=== PATIENT | male | born 1965 | race Caucasian/White ===

== ENCOUNTER 2017-04-26 06:48 | Inpatient (IN) | payer BC ==
[~2017-04-26 06:48] MED LIST: Bisacodyl 5 MG Tab PO PRN; Cyclobenzaprine 10 MG Tab PO PRN; Ketorolac 15 MG/ML SDV IVPUSH PRN; Lidocaine 1%/Sod Bicarbonate in NS 8.4% 1 ML Syringe PRN; Magnesium Hydroxide 400 MG/5 ML Susp 30 ML Cup PO PRN; Morphine 2 MG/ML Syringe IVPUSH PRN; Naloxone 0.4 MG/ML SDV IVPUSH PRN; Ondansetron 4 MG/2 ML SDV IVPUSH PRN; Sennosides 8.6 MG Tab PO PRN; Sodium Chloride 0.9% 10 ML Syringe FLUSH PRN; diphenhydrAMINE 50 MG/ML SDV IVPUSH PRN
[2017-04-26] MEDS ORDERED: Vancomycin 1 GM SDV ONE (07:09)
[2017-04-26] MEDS ORDERED: ceFAZolin 1 GM Vial ONE ×2 (07:09→07:47)
[2017-04-26] MEDS ORDERED: Iodine/Sodium Iodide 2% Tincture 30 ML Bottle ONE (07:09)
[2017-04-26] MEDS ORDERED: Bupivacaine 0.25% 30 ML SDV ONE (07:09)
[2017-04-26] MEDS: Lactated Ringers 1,000 ML IV SCH ×2 (07:20→11:42)
--- NOTE | 2017-04-26 07:23 | PCM.PREANE ---
Preanesthetic Assessment - Anesthesia/Transfusion/Family Hx Anesthesia History: Prior Anesthesia Without Reaction Family History of Anesthesia Reaction: No - Review of Systems General: No Symptoms Pulmonary: No Symptoms Cardiovascular: No Symptoms, Other (HTN, HLD) Gastrointestinal: No Symptoms Neurological: Other (L2-D2woahcc surgery, chronic low back pain, C6-7 ruptured disc, right hand numbness) Other: Reports: None - Physical Assessment NPO Status Date: 04/25/17 NPO Status Time: 22:30 Pulse: 67 O2 Sat by Pulse Oximetry: 99 Respiratory Rate: 16 Blood Pressure: 134/75 Temperature: 37.0 C Height: 1.98 m Weight: 95 kg ASA Class: 2 Mental Status: Alert & Oriented x3 Airway Class: Mallampati = 2 Dentition: Reports: Normal Dentition Thyro-Mental Finger Breadths: 3 Mouth Opening Finger Breadths: 3 ROM/Head Extension: Full Lungs: Clear to Auscultation, Normal Respiratory Effort Cardiovascular: Regular Rate, Regular Rhythm - Lab Values: Laboratory Last Values MRSA (PCR) Negative 04/14/17 09:29 - Allergies Allergies/Adverse Reactions: Allergies Allergy/AdvReac Type Severity Reaction Status Date / Time cat dander Allergy Mild unknown Verified 04/23/17 12:18 Tramadol Allergy Intermediate Vomiting Uncoded 04/23/17 12:18 Environmental Allergy Mild unknown Uncoded 04/23/17 12:18 - Blood Blood Available: No Product(s) Available: None - Anesthesia Plan Pre-Op Medication Ordered: None - Acknowledgements Anesthesia Type Planned: Spinal Pt an Appropriate Candidate for the Planned Anesthesia: Yes Alternatives and Risks of Anesthesia Discussed w Pt/Guardian: Yes Pt/Guardian Understands and Agrees with Anesthesia Plan: Yes PreAnesthesia Questionnaire Other HEENT History: Seasonal Allergic Rhinitis Other Cardiovascular History: Dylipidemia, HTN Other Genitourinary History: Male Sexual Dysfunction, Hypogonadism Musculoskeletal History: Reports: Back Pain, Chronic, Osteoarthritis Other Musculoskeletal History: L2-S1 Buldging discs, Chronic Left Hip Pain, Right SI joint pain, Left knee pain Neurological History: Reports: Other (See Below) Other Neuro History: C6-C7 disc rupture, back spasms, discongenic syndrome right radicular component, foraminal disc herniation L2/L3, chronic numbness to right hand for fifteen years. Endocrine/Metabolic History: Reports: Other (See Below) Other Endocrine/Metabolic History: Chronic Fatigue - Past Surgical History Other HEENT Surgeries/Procedures: Patient states he has had a few dental procedures in the past. Musculoskeletal Surgical History: Reports: Other (See Below) Other Musculoskeletal Surgeries/Procedures:: Patient states he had lumbar disc surgery on October 2016. - SUBSTANCE USE Smoking Status *Q: Never Smoker Days Per Week of Alcohol Use: 7 Number of Drinks Per Day: 2 Total Drinks Per Week: 14 Recreational Drug Use History: No - HOME MEDS Home Medications: Home Meds Ibuprofen 800 mg PO TID PRN 04/23/17 [History] Lisinopril 5 mg PO DAILY 04/23/17 [History] Testosterone Cypionate [Depo-Testosterone] 200 mg IM ASDIRECTED 04/23/17 [ History] oxyCODONE HCl [Oxycodone HCl] 1 - 2 cap PO Q4H PRN 04/23/17 [History] - CURRENT (IN HOUSE) MEDS Current Meds: Current Medications Aspirin (Ecotrin) 325 mg PO BID [facility] Bisacodyl (Dulcolax) 5 mg PO DAILY PRN PRN Reason: Constipation Morphine Sulfate 8 mg/Epinephrine HCl 0.3 mg/Cefuroxime Sodium 750 mg/Ketorolac Tromethamine 30 mg/Sodium Chloride 27.9 ml 0 mg .XX ONETIME ONE Stop: 04/26/17 06:28 Cyclobenzaprine HCl (Flexeril) 10 mg PO TID PRN PRN Reason: Spasms Diphenhydramine HCl (Benadryl) 25 mg IVPUSH Q4H PRN PRN Reason: Nausea Docusate Sodium (Colace) 100 mg PO BID [facility] Famotidine (Pepcid) 20 mg PO Q12H [facility] Lactated Ringer's (Ringers, Lactated) 1,000 mls @ 125 mls/hr IV ASDIRECTED [facility] Cefazolin Sodium/Dextrose 2 gm (/ Premix) 50 mls @ 100 mls/hr IV Q8H [facility] Stop: 04/26/17 22:59 Ketorolac Tromethamine (Toradol) 15 mg IVPUSH Q6H PRN PRN Reason: Pain Lidocaine/Sodium Bicarbonate (Buffered Lidocaine 1% In Ns 8.4%) 0.25 ml IV ONETIME PRN PRN Reason: Prior to IV Start Magnesium Hydroxide (Milk Of Magnesia) 30 ml PO BID PRN PRN Reason: Constipation Morphine Sulfate (Morphine) 2 mg IVPUSH Q2H PRN PRN Reason: Breakthrough Pain Naloxone HCl (Narcan) 0.1 mg IVPUSH Q5M PRN PRN Reason: Oversedation Ondansetron HCl (Zofran) 4 mg IVPUSH Q6H PRN PRN Reason: Nausea/Vomiting Oxycodone/Acetaminophen (Percocet 325-5 Mg) 1 - 2 tab PO Q4H PRN PRN Reason: Pain Senna (Senna) 8.6 mg PO BID PRN PRN Reason: Constipation Sodium Chloride (Saline Flush) 10 ml FLUSH ASDIRECTED PRN PRN Reason: Keep Vein Open
[2017-04-26] MEDS ORDERED: Morphine PF 10 MG/10 ML SDV ONE (07:27)
[2017-04-26] MEDS ORDERED: Propofol 200 MG/20 ML SDV ONE ×4 (07:47→10:10)
[2017-04-26] MEDS ORDERED: Ketorolac 30 MG/ML SDV ONE (07:47)
[2017-04-26] MEDS ORDERED: Ondansetron 4 MG/2 ML SDV ONE (07:47)
[2017-04-26] MEDS ORDERED: Midazolam 1 MG/ML 2 ML SDV ONE (07:48)
[2017-04-26] MEDS ORDERED: fentaNYL 100 MCG/2 ML SDV ONE (07:48)
[2017-04-26] MEDS ORDERED: Phenylephrine/Normal Saline 100 MCG/ML 10 ML Syringe ONE (09:03)
[2017-04-26] MEDS ORDERED: fentaNYL 100 MCG/2 ML SDV IVPUSH PRN (09:37)
[2017-04-26] MEDS ORDERED: HYDROmorphone 0.5 MG/0.5 ML Syringe IVPUSH PRN (09:37)
[2017-04-26] MEDS ORDERED: diphenhydrAMINE 50 MG/ML SDV IVPUSH PRN (09:37)
[2017-04-26] MEDS: Morphine 8 MG, EPINEPHrine 0.3 MG, Cefuroxime 750 MG, Ketorolac 30 MG, Sodium Chloride ... ONE ×5 (10:22)
[2017-04-26] MEDS ORDERED: Lactated Ringers 1,000 ML ONE ×2 (10:49)
--- NOTE | 2017-04-26 10:57 | PCM.POSTAN ---
POST ANESTHESIA ASSESSMENT - MENTAL STATUS Mental Status: Alert, Oriented - VITAL SIGNS Pulse Rate: 72 SaO2: 98 Resp Rate: 14 Blood Pressure: 100/64 Temperature: 36.1 C - RESPIRATORY Respiratory Status: Respiratory Rate WNL, Airway Patent, O2 Saturation Stable, Supplemental Oxygen - CARDIOVASCULAR CV Status: Pulse Rate WNL, Blood Pressure Stable - GASTROINTESTINAL GI Status: No Symptoms - POST OP HYDRATION Hydration Status: Adequate & Stable
[2017-04-26] MEDS ORDERED: Testosterone Cypionate 200 MG/ML MDV IM SCH (11:00)
--- NOTE | 2017-04-26 11:41 | CR ---
Pelvis and left hip: AP view of the pelvis was obtained as well as AP and lateral views of the left hip. Comparison: No previous study. Degenerative change and slight scoliosis is partially seen within the lumbar spine. Joint space within the right hip is preserved. Left hip prosthesis is seen which has been recently placed. Underlying bony structures appear intact. Soft tissue air around the left hip is seen from the surgical procedure. Impression: 1. Recently placed left hip prosthesis which appears within normal limits. 2. Degenerative change and mild scoliosis is partially seen within the lumbar spine. Diagnostic code #2
--- NOTE | 2017-04-26 13:31 | PCM.CONSN ---
- General Info Date of Service: 04/26/17 Admission Dx/Problem (Free Text): Nicholas is a pleasant 51yo male s/p Lt [place]ES[place] with Dr. Beltrán this morning. He is resting comfortably in bed. No pain at present time. He is eating a cheeseburger and drinking a large coffee. No nausea. No complaints or concerns at this time. His Aila is present in room as well. PMH: HTN, HLD, Testosterone deficiency, seasonal allergies. PCP is Functional Status: Reports: Pain Controlled, Tolerating Diet, Urinating (mock cath draining clear yellow urine). Denies: Ambulating (not OOB yeat) - Review of Systems General: Reports: No Symptoms HEENT: Reports: No Symptoms Pulmonary: Reports: No Symptoms Cardiovascular: Reports: No Symptoms Gastrointestinal: Reports: No Symptoms Genitourinary: Reports: No Symptoms Musculoskeletal: Reports: No Symptoms Skin: Reports: No Symptoms Neurological: Reports: No Symptoms Psychiatric: Reports: No Symptoms - Patient Data Vitals - Most Recent: Last Vital Signs Temp 97.7 F 04/26/17 11:52 Pulse 72 04/26/17 10:57 Resp 16 04/26/17 13:00 BP 118/65 04/26/17 12:07 Pulse Ox 95 04/26/17 13:00 Weight - Most Recent: 209 lb 7.026 oz I&O - Last 24 Hours: Intake & Output 04/25/17 04/26/17 04/26/17 22:59 06:59 14:59 Intake Total 500 Output Total 200 Balance 300 Lab Results Last 24 Hours: Laboratory Results - last 24 hr 04/26/17 Range/Units 07:18 Blood Type B POSITIVE Gel Antibody Screen Negative Med Orders - Current: Current Medications Aspirin (Ecotrin) 325 mg PO BID [facility] Bisacodyl (Dulcolax) 5 mg PO DAILY PRN PRN Reason: Constipation Cyclobenzaprine HCl (Flexeril) 10 mg PO TID PRN PRN Reason: Spasms Docusate Sodium (Colace) 100 mg PO BID [facility] Famotidine (Pepcid) 20 mg PO Q12H [facility] Lactated Ringer's (Ringers, Lactated) 1,000 mls @ 125 mls/hr IV ASDIRECTED [facility] Stop: 04/26/17 23:00 Last Admin: 04/26/17 11:42 Dose: 125 mls/hr Cefazolin Sodium/Dextrose 2 gm (/ Premix) 50 mls @ 100 mls/hr IV Q8H [facility] Stop: 04/27/17 08:14 Ketorolac Tromethamine (Toradol) 15 mg IVPUSH Q6H PRN PRN Reason: Pain Lisinopril (Prinivil) 5 mg PO DAILY [facility] Magnesium Hydroxide (Milk Of Magnesia) 30 ml PO BID PRN PRN Reason: Constipation Morphine Sulfate (Morphine) 2 mg IVPUSH Q2H PRN PRN Reason: Breakthrough Pain Naloxone HCl (Narcan) 0.1 mg IVPUSH Q5M PRN PRN Reason: Oversedation Ondansetron HCl (Zofran) 4 mg IVPUSH Q6H PRN PRN Reason: Nausea/Vomiting Oxycodone/Acetaminophen (Percocet 325-5 Mg) 1 - 2 tab PO Q4H PRN PRN Reason: Pain Senna (Senna) 8.6 mg PO BID PRN PRN Reason: Constipation Sodium Chloride (Saline Flush) 10 ml FLUSH ASDIRECTED PRN PRN Reason: Keep Vein Open Stop: 04/26/17 18:00 Discontinued Medications Bupivacaine HCl (Marcaine 0.25%) Confirm Administered Dose 30 ml .ROUTE .STK- MED ONE Stop: 04/26/17 07:10 Last Admin: 04/26/17 10:25 Dose: 30 ml Cefazolin Sodium (Ancef) Confirm Administered Dose 2 gm .ROUTE .STK-MED ONE Stop: 04/26/17 07:10 Last Admin: 04/26/17 10:18 Dose: 2 gm Cefazolin Sodium (Ancef) Confirm Administered Dose 2 gm .ROUTE .STK-MED ONE Stop: 04/26/17 07:48 Morphine Sulfate 8 mg/Epinephrine HCl 0.3 mg/Cefuroxime Sodium 750 mg/Ketorolac Tromethamine 30 mg/Sodium Chloride 27.9 ml 0 mg .XX ONETIME ONE Stop: 04/26/17 06:28 Last Admin: 04/26/17 10:22 Dose: 788.3 mg Diphenhydramine HCl (Benadryl) 25 mg IVPUSH Q4H PRN PRN Reason: Nausea Diphenhydramine HCl (Benadryl) 25 mg IVPUSH Q6H PRN PRN Reason: itching Stop: 04/26/17 12:00 Fentanyl (Sublimaze) Confirm Administered Dose 100 mcg .ROUTE .STK-MED ONE Stop: 04/26/17 07:49 Fentanyl (Sublimaze) 50 mcg IVPUSH Q5M PRN PRN Reason: pain Stop: 04/26/17 12:00 Hydromorphone HCl (Dilaudid) 0.5 mg IVPUSH Q15M PRN PRN Reason: Pain (severe 7-10) Stop: 04/26/17 12:00 Lactated Ringer's (Ringers, Lactated) Confirm Administered Dose 1,000 mls @ as directed .ROUTE .STK-MED ONE Stop: 04/26/17 10:50 Lactated Ringer's (Ringers, Lactated) Confirm Administered Dose 1,000 mls @ as directed .ROUTE .STK-MED ONE Stop: 04/26/17 10:50 Iodine (Iodine 2% Mild Tincture) Confirm Administered Dose 30 ml .ROUTE .STK- MED ONE Stop: 04/26/17 07:10 Last Admin: 04/26/17 10:15 Dose: 18 ml Ketorolac Tromethamine (Toradol) Confirm Administered Dose 30 mg .ROUTE .STK- MED ONE Stop: 04/26/17 07:48 Lidocaine/Sodium Bicarbonate (Buffered Lidocaine 1% In Ns 8.4%) 0.25 ml .XX ONETIME PRN PRN Reason: Prior to IV Start Stop: 04/26/17 18:00 Last Admin: 04/26/17 07:19 Dose: 0.25 ml Midazolam HCl (Versed 1 Mg/Ml) Confirm Administered Dose 2 mg .ROUTE .STK-MED ONE Stop: 04/26/17 07:49 Morphine Sulfate (Duramorph Pf) Confirm Administered Dose 10 mg .ROUTE .STK-MED ONE Stop: 04/26/17 07:28 Ondansetron HCl (Zofran) Confirm Administered Dose 4 mg .ROUTE .STK-MED ONE Stop: 04/26/17 07:48 Phenylephrine HCl (Phenylephrine In Ns 100 Mcg/Ml) Confirm Administered Dose 1 mg .ROUTE .STK-MED ONE Stop: 04/26/17 09:04 Propofol (Diprivan 20 Ml) Confirm Administered Dose 400 mg .ROUTE .STK-MED ONE Stop: 04/26/17 07:48 Propofol (Diprivan 20 Ml) Confirm Administered Dose 200 mg .ROUTE .STK-MED ONE Stop: 04/26/17 09:13 Propofol (Diprivan 20 Ml) Confirm Administered Dose 200 mg .ROUTE .STK-MED ONE Stop: 04/26/17 09:53 Propofol (Diprivan 20 Ml) Confirm Administered Dose 200 mg .ROUTE .STK-MED ONE Stop: 04/26/17 10:11 Testosterone Cypionate (Depo-Testosterone) 200 mg IM ASDIRECTED [facility] Tranexamic Acid (Cyklokapron) Confirm Administered Dose 1,000 mg .ROUTE .STK- MED ONE Stop: 04/26/17 07:10 Last Admin: 04/26/17 10:25 Dose: 1,000 mg Vancomycin HCl (Vancomycin) Confirm Administered Dose 1 gm .ROUTE .STK-MED ONE Stop: 04/26/17 07:10 Last Admin: 04/26/17 10:24 Dose: 1 gm - Exam Quality Assessment: DVT Prophylaxis General: Alert, Oriented, Cooperative, No Acute Distress HEENT: Pupils Equal, Pupils Reactive, Mucous Membr. Moist/[place] Neck: Supple Lungs: Normal Respiratory Effort Extremities: Normal Inspection, Normal Capillary Refill, Other (CMS to LE is present, sensation decreased but "coming back". ) Peripheral Pulses: 2+: Posterior Tibial (L), Posterior Tibial (R), Dorsalis Pedis (L), Dorsalis Pedis (R) Skin: Warm Neurological: No New Focal Deficit Psy/Mental Status: Alert, Normal Affect, Normal Mood Consult PN Assessment/Plan POD#: 0 (1) S/P total hip arthroplasty SNOMED Code(s): 465501622556 Code(s): Z96.649 - PRESENCE OF UNSPECIFIED ARTIFICIAL HIP JOINT Priority: High Current Visit: Yes Qualifiers: Laterality: left Qualified Code(s): Z96.642 - Presence of left artificial hip joint (2) Osteoarthritis SNOMED Code(s): 968527325 Code(s): M19.90 - UNSPECIFIED OSTEOARTHRITIS, UNSPECIFIED SITE Priority: High Current Visit: Yes Qualifiers: Osteoarthritis location: hip Osteoarthritis type: primary Laterality: left Qualified Code(s): M16.12 - Unilateral primary osteoarthritis, left hip (3) HTN (hypertension) SNOMED Code(s): 46625662 Code(s): I10 - ESSENTIAL (PRIMARY) HYPERTENSION Priority: Medium Current Visit: Yes Qualifiers: Hypertension type: essential hypertension Qualified Code(s): I10 - Essential (primary) hypertension (4) HLD (hyperlipidemia) SNOMED Code(s): 01850571 Code(s): E78.5 - HYPERLIPIDEMIA, UNSPECIFIED Priority: Medium Current Visit: No Qualifiers: Hyperlipidemia type: unspecified Qualified Code(s): E78.5 - Hyperlipidemia , unspecified (5) Testosterone deficiency SNOMED Code(s): 6107538860963 Code(s): E34.9 - ENDOCRINE DISORDER, UNSPECIFIED Priority: Medium Current Visit: No Problem List Initiated/Reviewed/Updated: Yes Plan: I/P: S/P Lt total hip arthroplasty, POD # 0, Dr. Beltrán - Pain management and DVT prophylax - PT/OT - RT/IS- no supplemental oxygen at this time - Hgb - follow am labs Chronic conditions: Hypertension, stable, continue home meds Hyperlipidemia, continue home meds Testosterone deficiency Chronic low back pain status post multiple back surgeries/procedures Chronic fatigue Other: GI Prophylax CM/SW for DC planning Patient is full Code status.
[2017-04-26] MEDS: diphenhydrAMINE 50 MG/ML SDV IVPUSH PRN ×2 (15:50→23:17)
[2017-04-26] MEDS: ceFAZolin 2 GM in Premix Bag 1 BAG IV SCH ×2 (15:50→23:17)
[2017-04-26] MEDS: Acetaminophen/oxyCODONE 325-5 MG Tab PO PRN (19:23)
[2017-04-26] MEDS: Docusate Sodium 100 MG Cap PO SCH (20:52)
[2017-04-26] MEDS: Famotidine 20 MG Tab PO SCH (20:53)
[2017-04-27] MEDS: Acetaminophen/oxyCODONE 325-5 MG Tab PO PRN ×2 (03:53→10:02)
[2017-04-27] MEDS: Morphine 8 MG, EPINEPHrine 0.3 MG, Cefuroxime 750 MG, Ketorolac 30 MG, Sodium Chloride ... ONE ×5 (05:44)
[2017-04-27] MEDS: ceFAZolin 2 GM in Premix Bag 1 BAG IV SCH (07:36)
[2017-04-27] MEDS ORDERED: Lisinopril 5 MG Tab PO SCH (09:00)
[2017-04-27] MEDS ORDERED: Aspirin 325 MG Tab.EC PO SCH (09:00)
[2017-04-27] MEDS: Famotidine 20 MG Tab PO SCH (09:17)
[2017-04-27] MEDS: Docusate Sodium 100 MG Cap PO SCH (09:18)
--- NOTE | 2017-04-27 12:24 | PCM.CONSN ---
- General Info Date of Service: 04/27/17 Admission Dx/Problem (Free Text): Nicholas is a pleasant 51yo male s/p Lt [place] with Dr. Beltrán POD #1 Doing well, pain controlled, no n/v. Anxious for DC home today. Functional Status: Reports: Pain Controlled, Tolerating Diet, Ambulating, Urinating, Incentive Spirometry. Denies: New Symptoms - Review of Systems General: Reports: No Symptoms HEENT: Reports: No Symptoms Pulmonary: Reports: No Symptoms Cardiovascular: Reports: No Symptoms Gastrointestinal: Reports: No Symptoms Genitourinary: Reports: No Symptoms Musculoskeletal: Reports: Leg Pain (minimal pain) Skin: Reports: No Symptoms Neurological: Reports: No Symptoms Psychiatric: Reports: No Symptoms - Patient Data Vitals - Most Recent: Last Vital Signs Temp 98.4 F 04/27/17 08:14 Pulse 76 04/27/17 08:14 Resp 16 04/27/17 08:14 BP 112/67 04/27/17 09:16 Pulse Ox 95 04/27/17 08:14 Weight - Most Recent: 220 lb 9.6 oz I&O - Last 24 Hours: Intake & Output 04/26/17 04/27/17 04/27/17 22:59 06:59 14:59 Intake Total 1930 900 100 Output Total 650 Balance 1280 900 100 Lab Results Last 24 Hours: Laboratory Results - last 24 hr 04/27/17 04/27/17 Range/Units 06:01 06:01 WBC 8.35 (4.23-9.07) K/mm3 RBC 3.93 L (4.63-6.08) M/mm3 Hgb 12.0 L (13.7-17.5) gm/L Hct 35.8 L (40.1-51.0) % MCV 91.1 (79.0-92.2) fl MCH 30.5 (25.7-32.2) pg MCHC 33.5 (32.2-35.5) g/dl RDW Std Deviation 42.0 (35.1-43.9) fL Plt Count 228 (163-337) K/mm3 MPV 9.2 L (9.4-12.3) fl Sodium 139 (136-145) mEq/L Potassium 4.4 (3.5-5.1) mEq/L Chloride 105 (98-107) mEq/L Carbon Dioxide 26 (21-32) mEq/L Anion Gap 12.4 (5-15) BUN 12 (7-18) mg/dL Creatinine 1.0 (0.7-1.3) mg/dL Est Cr Clr Drug Dosing 110.44 mL/min Estimated GFR (MDRD) > 60 (>60) mL/min BUN/Creatinine Ratio 12.0 L (14-18) Glucose 120 H (74-106) mg/dL Calcium 8.4 L (8.5-10.1) mg/dL Total Bilirubin 0.6 (0.2-1.0) mg/dL AST 33 (15-37) U/L ALT 31 (16-63) U/L Alkaline Phosphatase 69 (46-116) U/L Total Protein 5.8 L (6.4-8.2) g/dl Albumin 3.0 L (3.4-5.0) g/dl Globulin 2.8 gm/dL Albumin/Globulin Ratio 1.1 (1-2) Med Orders - Current: Current Medications Aspirin (Ecotrin) 325 mg PO BID [facility] Last Admin: 04/27/17 09:17 Dose: 325 mg Bisacodyl (Dulcolax) 5 mg PO DAILY PRN PRN Reason: Constipation Cyclobenzaprine HCl (Flexeril) 10 mg PO TID PRN PRN Reason: Spasms Last Admin: 04/27/17 07:36 Dose: 10 mg Docusate Sodium (Colace) 100 mg PO BID [facility] Last Admin: 04/27/17 09:18 Dose: Not Given Famotidine (Pepcid) 20 mg PO Q12H [facility] Last Admin: 04/27/17 09:17 Dose: Not Given Ketorolac Tromethamine (Toradol) 15 mg IVPUSH Q6H PRN PRN Reason: Pain Lisinopril (Prinivil) 5 mg PO DAILY [facility] Last Admin: 04/27/17 09:16 Dose: 5 mg Magnesium Hydroxide (Milk Of Magnesia) 30 ml PO BID PRN PRN Reason: Constipation Morphine Sulfate (Morphine) 2 mg IVPUSH Q2H PRN PRN Reason: Breakthrough Pain Naloxone HCl (Narcan) 0.1 mg IVPUSH Q5M PRN PRN Reason: Oversedation Ondansetron HCl (Zofran) 4 mg IVPUSH Q6H PRN PRN Reason: Nausea/Vomiting Oxycodone/Acetaminophen (Percocet 325-5 Mg) 1 - 2 tab PO Q4H PRN PRN Reason: Pain Last Admin: 04/27/17 10:02 Dose: 2 tab Senna (Senna) 8.6 mg PO BID PRN PRN Reason: Constipation Discontinued Medications Bupivacaine HCl (Marcaine 0.25%) Confirm Administered Dose 30 ml .ROUTE .STK- MED ONE Stop: 04/26/17 07:10 Last Admin: 04/26/17 10:25 Dose: 30 ml Cefazolin Sodium (Ancef) Confirm Administered Dose 2 gm .ROUTE .STK-MED ONE Stop: 04/26/17 07:10 Last Admin: 04/26/17 10:18 Dose: 2 gm Cefazolin Sodium (Ancef) Confirm Administered Dose 2 gm .ROUTE .STK-MED ONE Stop: 04/26/17 07:48 Morphine Sulfate 8 mg/Epinephrine HCl 0.3 mg/Cefuroxime Sodium 750 mg/Ketorolac Tromethamine 30 mg/Sodium Chloride 27.9 ml 0 mg .XX ONETIME ONE Stop: 04/26/17 06:28 Last Admin: 04/27/17 05:44 Dose: Not Given Diphenhydramine HCl (Benadryl) 25 mg IVPUSH Q4H PRN PRN Reason: Nausea Diphenhydramine HCl (Benadryl) 25 mg IVPUSH Q6H PRN PRN Reason: itching Stop: 04/26/17 12:00 Diphenhydramine HCl (Benadryl) 25 mg IVPUSH Q6H PRN PRN Reason: Itching Last Admin: 04/26/17 23:17 Dose: 25 mg Fentanyl (Sublimaze) Confirm Administered Dose 100 mcg .ROUTE .STK-MED ONE Stop: 04/26/17 07:49 Fentanyl (Sublimaze) 50 mcg IVPUSH Q5M PRN PRN Reason: pain Stop: 04/26/17 12:00 Hydromorphone HCl (Dilaudid) 0.5 mg IVPUSH Q15M PRN PRN Reason: Pain (severe 7-10) Stop: 04/26/17 12:00 Lactated Ringer's (Ringers, Lactated) 1,000 mls @ 125 mls/hr IV ASDIRECTED [facility] Stop: 04/26/17 23:00 Last Admin: 04/26/17 11:42 Dose: 125 mls/hr Cefazolin Sodium/Dextrose 2 gm (/ Premix) 50 mls @ 100 mls/hr IV Q8H [facility] Stop: 04/27/17 08:14 Last Admin: 04/27/17 07:36 Dose: 100 mls/hr Lactated Ringer's (Ringers, Lactated) Confirm Administered Dose 1,000 mls @ as directed .ROUTE .STK-MED ONE Stop: 04/26/17 10:50 Lactated Ringer's (Ringers, Lactated) Confirm Administered Dose 1,000 mls @ as directed .ROUTE .STK-MED ONE Stop: 04/26/17 10:50 Iodine (Iodine 2% Mild Tincture) Confirm Administered Dose 30 ml .ROUTE .STK- MED ONE Stop: 04/26/17 07:10 Last Admin: 04/26/17 10:15 Dose: 18 ml Ketorolac Tromethamine (Toradol) Confirm Administered Dose 30 mg .ROUTE .STK- MED ONE Stop: 04/26/17 07:48 Lidocaine/Sodium Bicarbonate (Buffered Lidocaine 1% In Ns 8.4%) 0.25 ml .XX ONETIME PRN PRN Reason: Prior to IV Start Stop: 04/26/17 18:00 Last Admin: 04/26/17 07:19 Dose: 0.25 ml Midazolam HCl (Versed 1 Mg/Ml) Confirm Administered Dose 2 mg .ROUTE .STK-MED ONE Stop: 04/26/17 07:49 Morphine Sulfate (Duramorph Pf) Confirm Administered Dose 10 mg .ROUTE .STK-MED ONE Stop: 04/26/17 07:28 Ondansetron HCl (Zofran) Confirm Administered Dose 4 mg .ROUTE .STK-MED ONE Stop: 04/26/17 07:48 Phenylephrine HCl (Phenylephrine In Ns 100 Mcg/Ml) Confirm Administered Dose 1 mg .ROUTE .STK-MED ONE Stop: 04/26/17 09:04 Propofol (Diprivan 20 Ml) Confirm Administered Dose 400 mg .ROUTE .STK-MED ONE Stop: 04/26/17 07:48 Propofol (Diprivan 20 Ml) Confirm Administered Dose 200 mg .ROUTE .STK-MED ONE Stop: 04/26/17 09:13 Propofol (Diprivan 20 Ml) Confirm Administered Dose 200 mg .ROUTE .STK-MED ONE Stop: 04/26/17 09:53 Propofol (Diprivan 20 Ml) Confirm Administered Dose 200 mg .ROUTE .STK-MED ONE Stop: 04/26/17 10:11 Sodium Chloride (Saline Flush) 10 ml FLUSH ASDIRECTED PRN PRN Reason: Keep Vein Open Stop: 04/26/17 18:00 Testosterone Cypionate (Depo-Testosterone) 200 mg IM ASDIRECTED [facility] Tranexamic Acid (Cyklokapron) Confirm Administered Dose 1,000 mg .ROUTE .STK- MED ONE Stop: 04/26/17 07:10 Last Admin: 04/26/17 10:25 Dose: 1,000 mg Vancomycin HCl (Vancomycin) Confirm Administered Dose 1 gm .ROUTE .STK-MED ONE Stop: 04/26/17 07:10 Last Admin: 04/26/17 10:24 Dose: 1 gm - Exam Quality Assessment: DVT Prophylaxis General: Alert, Oriented, Cooperative, No Acute Distress HEENT: Pupils Equal, EOMI, Mucous Membr. Moist/[place] Neck: Supple Lungs: Clear to Auscultation, Normal Respiratory Effort Cardiovascular: Regular Rate, Regular Rhythm GI/Abdominal Exam: Normal Bowel Sounds, Soft (Male) Exam: Deferred Extremities: Other (ice to lt hip; CMS + bilat, thigh is soft) Peripheral Pulses: 2+: Dorsalis Pedis (L), Dorsalis Pedis (R) Neurological: No New Focal Deficit, Strength Equal Bilateral Psy/Mental Status: Alert, Normal Affect, Normal Mood Consult PN Assessment/Plan POD#: 1 (1) S/P total hip arthroplasty SNOMED Code(s): 193105179612 Code(s): Z96.649 - PRESENCE OF UNSPECIFIED ARTIFICIAL HIP JOINT Priority: High Current Visit: Yes Qualifiers: Laterality: left Qualified Code(s): Z96.642 - Presence of left artificial hip joint (2) Osteoarthritis SNOMED Code(s): 312616089 Code(s): M19.90 - UNSPECIFIED OSTEOARTHRITIS, UNSPECIFIED SITE Priority: High Current Visit: Yes Qualifiers: Osteoarthritis location: hip Osteoarthritis type: primary Laterality: left Qualified Code(s): M16.12 - Unilateral primary osteoarthritis, left hip (3) HTN (hypertension) SNOMED Code(s): 65629777 Code(s): I10 - ESSENTIAL (PRIMARY) HYPERTENSION Priority: Medium Current Visit: Yes Qualifiers: Hypertension type: essential hypertension Qualified Code(s): I10 - Essential (primary) hypertension (4) HLD (hyperlipidemia) SNOMED Code(s): 98244621 Code(s): E78.5 - HYPERLIPIDEMIA, UNSPECIFIED Priority: Medium Current Visit: No Qualifiers: Hyperlipidemia type: unspecified Qualified Code(s): E78.5 - Hyperlipidemia , unspecified (5) Testosterone deficiency SNOMED Code(s): 0315525636377 Code(s): E34.9 - ENDOCRINE DISORDER, UNSPECIFIED Priority: Medium Current Visit: No Problem List Initiated/Reviewed/Updated: Yes My Orders Last 24 Hours: My Active Orders 04/27/17 12:22 Ready for Discharge [RC] PER UNIT ROUTINE Plan: I/P: S/P Lt total hip arthroplasty, POD # 1, Dr. Beltrán - Pain management and DVT prophylax - PT/OT - RT/IS- no supplemental oxygen at this time - Hgb - 12.0 Chronic conditions: Hypertension, stable, continue home meds Hyperlipidemia, continue home meds Testosterone deficiency Chronic low back pain status post multiple back surgeries/procedures Chronic fatigue Other: GI Prophylax CM/SW for DC planning--OK for DC home from Hospitalist standpoint. Patient is full Code status.
--- NOTE | 2017-04-28 11:17 | PCM.SURGPN ---
- General Info Date of Service: 04/27/17 POD#: 1 Functional Status: Reports: Pain Controlled, Tolerating Diet, Ambulating, Urinating, Incentive Spirometry, Other (The pt feels prepared for discharge to home.) - Patient Data Vitals - Most Recent: Last Vital Signs Temp 98.1 F 04/27/17 12:16 Pulse 79 04/27/17 12:16 Resp 16 04/27/17 12:16 BP 129/74 04/27/17 12:16 Pulse Ox 97 04/27/17 12:16 Weight - Most Recent: 220 lb 9.6 oz I&O - Last 24 Hours: Intake & Output 04/27/17 04/28/17 04/28/17 22:59 06:59 14:59 Intake Total 240 Balance 240 Med Orders - Current: Current Medications Discontinued Medications Aspirin (Ecotrin) 325 mg PO BID RAD[facility] Last Admin: 04/27/17 09:17 Dose: 325 mg Bisacodyl (Dulcolax) 5 mg PO DAILY PRN PRN Reason: Constipation Bupivacaine HCl (Marcaine 0.25%) Confirm Administered Dose 30 ml .ROUTE .STK- MED ONE Stop: 04/26/17 07:10 Last Admin: 04/26/17 10:25 Dose: 30 ml Cefazolin Sodium (Ancef) Confirm Administered Dose 2 gm .ROUTE .STK-MED ONE Stop: 04/26/17 07:10 Last Admin: 04/26/17 10:18 Dose: 2 gm Cefazolin Sodium (Ancef) Confirm Administered Dose 2 gm .ROUTE .STK-MED ONE Stop: 04/26/17 07:48 Morphine Sulfate 8 mg/Epinephrine HCl 0.3 mg/Cefuroxime Sodium 750 mg/Ketorolac Tromethamine 30 mg/Sodium Chloride 27.9 ml 0 mg .XX ONETIME ONE Stop: 04/26/17 06:28 Last Admin: 04/27/17 05:44 Dose: Not Given Cyclobenzaprine HCl (Flexeril) 10 mg PO TID PRN PRN Reason: Spasms Last Admin: 04/27/17 07:36 Dose: 10 mg Diphenhydramine HCl (Benadryl) 25 mg IVPUSH Q4H PRN PRN Reason: Nausea Diphenhydramine HCl (Benadryl) 25 mg IVPUSH Q6H PRN PRN Reason: itching Stop: 04/26/17 12:00 Diphenhydramine HCl (Benadryl) 25 mg IVPUSH Q6H PRN PRN Reason: Itching Last Admin: 04/26/17 23:17 Dose: 25 mg Docusate Sodium (Colace) 100 mg PO BID [facility] Last Admin: 04/27/17 09:18 Dose: Not Given Famotidine (Pepcid) 20 mg PO Q12H [facility] Last Admin: 04/27/17 09:17 Dose: Not Given Fentanyl (Sublimaze) Confirm Administered Dose 100 mcg .ROUTE .STK-MED ONE Stop: 04/26/17 07:49 Fentanyl (Sublimaze) 50 mcg IVPUSH Q5M PRN PRN Reason: pain Stop: 04/26/17 12:00 Hydromorphone HCl (Dilaudid) 0.5 mg IVPUSH Q15M PRN PRN Reason: Pain (severe 7-10) Stop: 04/26/17 12:00 Lactated Ringer's (Ringers, Lactated) 1,000 mls @ 125 mls/hr IV ASDIRECTED [facility] Stop: 04/26/17 23:00 Last Admin: 04/26/17 11:42 Dose: 125 mls/hr Cefazolin Sodium/Dextrose 2 gm (/ Premix) 50 mls @ 100 mls/hr IV Q8H [facility] Stop: 04/27/17 08:14 Last Admin: 04/27/17 07:36 Dose: 100 mls/hr Lactated Ringer's (Ringers, Lactated) Confirm Administered Dose 1,000 mls @ as directed .ROUTE .STK-MED ONE Stop: 04/26/17 10:50 Lactated Ringer's (Ringers, Lactated) Confirm Administered Dose 1,000 mls @ as directed .ROUTE .STK-MED ONE Stop: 04/26/17 10:50 Iodine (Iodine 2% Mild Tincture) Confirm Administered Dose 30 ml .ROUTE .STK- MED ONE Stop: 04/26/17 07:10 Last Admin: 04/26/17 10:15 Dose: 18 ml Ketorolac Tromethamine (Toradol) 15 mg IVPUSH Q6H PRN PRN Reason: Pain Ketorolac Tromethamine (Toradol) Confirm Administered Dose 30 mg .ROUTE .STK- MED ONE Stop: 04/26/17 07:48 Lidocaine/Sodium Bicarbonate (Buffered Lidocaine 1% In Ns 8.4%) 0.25 ml .XX ONETIME PRN PRN Reason: Prior to IV Start Stop: 04/26/17 18:00 Last Admin: 04/26/17 07:19 Dose: 0.25 ml Lisinopril (Prinivil) 5 mg PO DAILY [facility] Last Admin: 04/27/17 09:16 Dose: 5 mg Magnesium Hydroxide (Milk Of Magnesia) 30 ml PO BID PRN PRN Reason: Constipation Midazolam HCl (Versed 1 Mg/Ml) Confirm Administered Dose 2 mg .ROUTE .STK-MED ONE Stop: 04/26/17 07:49 Morphine Sulfate (Morphine) 2 mg IVPUSH Q2H PRN PRN Reason: Breakthrough Pain Morphine Sulfate (Duramorph Pf) Confirm Administered Dose 10 mg .ROUTE .STK-MED ONE Stop: 04/26/17 07:28 Naloxone HCl (Narcan) 0.1 mg IVPUSH Q5M PRN PRN Reason: Oversedation Ondansetron HCl (Zofran) 4 mg IVPUSH Q6H PRN PRN Reason: Nausea/Vomiting Ondansetron HCl (Zofran) Confirm Administered Dose 4 mg .ROUTE .STK-MED ONE Stop: 04/26/17 07:48 Oxycodone/Acetaminophen (Percocet 325-5 Mg) 1 - 2 tab PO Q4H PRN PRN Reason: Pain Last Admin: 04/27/17 10:02 Dose: 2 tab Phenylephrine HCl (Phenylephrine In Ns 100 Mcg/Ml) Confirm Administered Dose 1 mg .ROUTE .STK-MED ONE Stop: 04/26/17 09:04 Propofol (Diprivan 20 Ml) Confirm Administered Dose 400 mg .ROUTE .STK-MED ONE Stop: 04/26/17 07:48 Propofol (Diprivan 20 Ml) Confirm Administered Dose 200 mg .ROUTE .STK-MED ONE Stop: 04/26/17 09:13 Propofol (Diprivan 20 Ml) Confirm Administered Dose 200 mg .ROUTE .STK-MED ONE Stop: 04/26/17 09:53 Propofol (Diprivan 20 Ml) Confirm Administered Dose 200 mg .ROUTE .STK-MED ONE Stop: 04/26/17 10:11 Senna (Senna) 8.6 mg PO BID PRN PRN Reason: Constipation Sodium Chloride (Saline Flush) 10 ml FLUSH ASDIRECTED PRN PRN Reason: Keep Vein Open Stop: 04/26/17 18:00 Testosterone Cypionate (Depo-Testosterone) 200 mg IM ASDIRECTED [facility] Tranexamic Acid (Cyklokapron) Confirm Administered Dose 1,000 mg .ROUTE .STK- MED ONE Stop: 04/26/17 07:10 Last Admin: 04/26/17 10:25 Dose: 1,000 mg Vancomycin HCl (Vancomycin) Confirm Administered Dose 1 gm .ROUTE .STK-MED ONE Stop: 04/26/17 07:10 Last Admin: 04/26/17 10:24 Dose: 1 gm - Exam Wound/Incisions: Dressing Dry and Intact General: Alert, Cooperative, No Acute Distress Lungs: Normal Respiratory Effort Extremities: Other (Left thigh soft. NVS intact for BLE. Segundo's sign negative for BLE.) - Problem List Review Problem List Initiated/Reviewed/Updated: Yes - My Orders Last 24 Hours: Active Orders 24 hr Category Date Time Status Ready for Discharge [RC] PER UNIT ROUTINE Care 04/27/17 12:22 Active - Assessment Assessment (Free Text/Narrative):: POD#1 - left LESLEY - Plan Plan (Free Text/Narrative):: 1. Hgb 12.0. 2. 325mg ASA BID, frequent mobility, TEDs. 3. Outpatient therapy. 4. LESLEY precautions. 5. Discharge to home today. The pt's case was discussed with Dr. Beltrán today.
--- NOTE | 2017-04-28 11:18 | PCM.DCSUM1 ---
Discharge Summary - Hospital Course Brief History: Nicholas is a 51 yo male who underwent left LESLEY with Dr. Beltrán on . The procedure was completed under spinal anesthesia. The pt tolerated the procedure well and was admitted to the Medical-Surgical Unit. Medical management was provided by the Hospitalist service. The pt's Hospital course was uneventful. The pt's Hgb on POD#1 was 12.0. On POD#1, 325mg ASA BID was initiated for VTE prophylaxis. SCDs and TEDs were also ordered. A Mepilex dressing was placed at the incision site at the time of surgery and remained clean and dry. The pt participated in P.T. and O.T. and progressed well. He followed the LESLEY precautions. The pt was allowed to WBAT. On POD#1, the pt was deemed appropriate to discharge to home. - Discharge Data Discharge Date: 04/27/17 Discharge Disposition: Home, Self-Care 01 Condition: Good - Patient Summary/Data Consults: Consultations 04/26/17 06:27 Consult to Physician [CONS] Routine OT Evaluation and Treatment [CONS] Routine 04/26/17 06:32 PT Evaluation and Treatment [CONS] Routine - Patient Instructions Diet: Usual Diet as Tolerated Activity: Apply Ice, As Tolerated, Elevate Extremity, Full Weight Bearing Activity, Other: Total hip precautions are to be followed. Driving: Do Not Drive Showering/Bathing: May Shower Wound/Incision Care: Keep Operative Site/Wound Site Clean and Dry, Do NOT Change Dressing Notify Provider of: Fever, Increased Pain, Swelling and Redness, Drainage, Nausea and/or Vomiting Other/Special Instructions: Please get up and moving around every hour while awake. This helps to prevent blood clots. Please take 325mg aspirin twice daily - this also helps to prevent blood clots. The medication is being used for blood clot prevention and not for pain control, so please use the medication twice daily as directed. Please wear the IVONNE hose during the day and you may remove them at night. Please schedule for P.T. Complete the P.T. exercises and stretches that were instructed in the Hospital. Follow the total hip precautions. Please use the pain medication and muscle relaxant as needed. The medication may cause drowsiness and/or constipation. You could use a stool softener like docusate sodium or Colace 100mg twice daily and/or a laxative like Miralax daily for constipation. Contact your primary care provider for further instructions if you are constipated. Please schedule an appointment with your primary care provider for 'routine post-op care'. Use the incentive spirometer often. Please place ice to the hip often. Please elevate the limb to decrease swelling. Keep the Mepilex dressing in place until follow-up. Please call [phone] with questions or concerns. - Discharge Plan Prescriptions/Med Rec: Acetaminophen/oxyCODONE [Percocet 325-5 MG] 1 - 2 tab PO Q4H PRN #60 tablet PRN Reason: Pain Aspirin [Ecotrin] 325 mg PO BID #70 tab.ec Cyclobenzaprine [Flexeril] 10 mg PO TID PRN #40 tablet PRN Reason: Spasms Docusate Sodium [Colace] 100 mg PO BID #30 cap Famotidine [Pepcid] 20 mg PO Q12H #60 tablet Home Medications: Home Meds Ibuprofen 800 mg PO TID PRN 04/23/17 [History] Lisinopril 5 mg PO DAILY 04/23/17 [History] Testosterone Cypionate [Depo-Testosterone] 150 mg IM ASDIRECTED 04/23/17 [ History] oxyCODONE HCl [Oxycodone HCl] 1 - 2 cap PO Q4H PRN 04/23/17 [History] Acetaminophen/oxyCODONE [Percocet 325-5 MG] 1 - 2 tab PO Q4H PRN #60 tablet 10/07 [Rx] Aspirin [Ecotrin] 325 mg PO BID #70 tab.ec 04/27/17 [Rx] Cyclobenzaprine [Flexeril] 10 mg PO TID PRN #40 tablet 04/27/17 [Rx] Docusate Sodium [Colace] 100 mg PO BID #30 cap 04/27/17 [Rx] Famotidine [Pepcid] 20 mg PO Q12H #60 tablet 04/27/17 [Rx] Patient Handouts: Cyclobenzaprine tablets, Acetaminophen; Oxycodone tablets, Total Hip Replacement, [id number], Hip Rehabilitation After Surgery, Aspirin, ASA oral tablets, Total Hip Replacement, Care After, [id number] Referrals: Heriberto Denis MD [Primary Care Provider] - Zaira Anaya PA-C [Physician Pullman Car Repairer] - - Patient Data Vitals - Most Recent: Last Vital Signs Temp 98.1 F 04/27/17 12:16 Pulse 79 04/27/17 12:16 Resp 16 04/27/17 12:16 BP 129/74 04/27/17 12:16 Pulse Ox 97 04/27/17 12:16 Weight - Most Recent: 220 lb 9.6 oz I&O - Last 24 hours: Intake & Output 04/27/17 04/28/17 04/28/17 22:59 06:59 14:59 Intake Total 240 Balance 240 Med Orders - Current: Current Medications Discontinued Medications Aspirin (Ecotrin) 325 mg PO BID [facility] Last Admin: 04/27/17 09:17 Dose: 325 mg Bisacodyl (Dulcolax) 5 mg PO DAILY PRN PRN Reason: Constipation Bupivacaine HCl (Marcaine 0.25%) Confirm Administered Dose 30 ml .ROUTE .STK- MED ONE Stop: 04/26/17 07:10 Last Admin: 04/26/17 10:25 Dose: 30 ml Cefazolin Sodium (Ancef) Confirm Administered Dose 2 gm .ROUTE .STK-MED ONE Stop: 04/26/17 07:10 Last Admin: 04/26/17 10:18 Dose: 2 gm Cefazolin Sodium (Ancef) Confirm Administered Dose 2 gm .ROUTE .STK-MED ONE Stop: 04/26/17 07:48 Morphine Sulfate 8 mg/Epinephrine HCl 0.3 mg/Cefuroxime Sodium 750 mg/Ketorolac Tromethamine 30 mg/Sodium Chloride 27.9 ml 0 mg .XX ONETIME ONE Stop: 04/26/17 06:28 Last Admin: 04/27/17 05:44 Dose: Not Given Cyclobenzaprine HCl (Flexeril) 10 mg PO TID PRN PRN Reason: Spasms Last Admin: 04/27/17 07:36 Dose: 10 mg Diphenhydramine HCl (Benadryl) 25 mg IVPUSH Q4H PRN PRN Reason: Nausea Diphenhydramine HCl (Benadryl) 25 mg IVPUSH Q6H PRN PRN Reason: itching Stop: 04/26/17 12:00 Diphenhydramine HCl (Benadryl) 25 mg IVPUSH Q6H PRN PRN Reason: Itching Last Admin: 04/26/17 23:17 Dose: 25 mg Docusate Sodium (Colace) 100 mg PO BID [facility] Last Admin: 04/27/17 09:18 Dose: Not Given Famotidine (Pepcid) 20 mg PO Q12H [facility] Last Admin: 04/27/17 09:17 Dose: Not Given Fentanyl (Sublimaze) Confirm Administered Dose 100 mcg .ROUTE .STK-MED ONE Stop: 04/26/17 07:49 Fentanyl (Sublimaze) 50 mcg IVPUSH Q5M PRN PRN Reason: pain Stop: 04/26/17 12:00 Hydromorphone HCl (Dilaudid) 0.5 mg IVPUSH Q15M PRN PRN Reason: Pain (severe 7-10) Stop: 04/26/17 12:00 Lactated Ringer's (Ringers, Lactated) 1,000 mls @ 125 mls/hr IV ASDIRECTED [facility] Stop: 04/26/17 23:00 Last Admin: 04/26/17 11:42 Dose: 125 mls/hr Cefazolin Sodium/Dextrose 2 gm (/ Premix) 50 mls @ 100 mls/hr IV Q8H [facility] Stop: 04/27/17 08:14 Last Admin: 04/27/17 07:36 Dose: 100 mls/hr Lactated Ringer's (Ringers, Lactated) Confirm Administered Dose 1,000 mls @ as directed .ROUTE .STK-MED ONE Stop: 04/26/17 10:50 Lactated Ringer's (Ringers, Lactated) Confirm Administered Dose 1,000 mls @ as directed .ROUTE .STK-MED ONE Stop: 04/26/17 10:50 Iodine (Iodine 2% Mild Tincture) Confirm Administered Dose 30 ml .ROUTE .STK- MED ONE Stop: 04/26/17 07:10 Last Admin: 04/26/17 10:15 Dose: 18 ml Ketorolac Tromethamine (Toradol) 15 mg IVPUSH Q6H PRN PRN Reason: Pain Ketorolac Tromethamine (Toradol) Confirm Administered Dose 30 mg .ROUTE .STK- MED ONE Stop: 04/26/17 07:48 Lidocaine/Sodium Bicarbonate (Buffered Lidocaine 1% In Ns 8.4%) 0.25 ml .XX ONETIME PRN PRN Reason: Prior to IV Start Stop: 04/26/17 18:00 Last Admin: 04/26/17 07:19 Dose: 0.25 ml Lisinopril (Prinivil) 5 mg PO DAILY [facility] Last Admin: 04/27/17 09:16 Dose: 5 mg Magnesium Hydroxide (Milk Of Magnesia) 30 ml PO BID PRN PRN Reason: Constipation Midazolam HCl (Versed 1 Mg/Ml) Confirm Administered Dose 2 mg .ROUTE .STK-MED ONE Stop: 04/26/17 07:49 Morphine Sulfate (Morphine) 2 mg IVPUSH Q2H PRN PRN Reason: Breakthrough Pain Morphine Sulfate (Duramorph Pf) Confirm Administered Dose 10 mg .ROUTE .STK-MED ONE Stop: 04/26/17 07:28 Naloxone HCl (Narcan) 0.1 mg IVPUSH Q5M PRN PRN Reason: Oversedation Ondansetron HCl (Zofran) 4 mg IVPUSH Q6H PRN PRN Reason: Nausea/Vomiting Ondansetron HCl (Zofran) Confirm Administered Dose 4 mg .ROUTE .STK-MED ONE Stop: 04/26/17 07:48 Oxycodone/Acetaminophen (Percocet 325-5 Mg) 1 - 2 tab PO Q4H PRN PRN Reason: Pain Last Admin: 04/27/17 10:02 Dose: 2 tab Phenylephrine HCl (Phenylephrine In Ns 100 Mcg/Ml) Confirm Administered Dose 1 mg .ROUTE .STK-MED ONE Stop: 04/26/17 09:04 Propofol (Diprivan 20 Ml) Confirm Administered Dose 400 mg .ROUTE .STK-MED ONE Stop: 04/26/17 07:48 Propofol (Diprivan 20 Ml) Confirm Administered Dose 200 mg .ROUTE .STK-MED ONE Stop: 04/26/17 09:13 Propofol (Diprivan 20 Ml) Confirm Administered Dose 200 mg .ROUTE .STK-MED ONE Stop: 04/26/17 09:53 Propofol (Diprivan 20 Ml) Confirm Administered Dose 200 mg .ROUTE .STK-MED ONE Stop: 04/26/17 10:11 Senna (Senna) 8.6 mg PO BID PRN PRN Reason: Constipation Sodium Chloride (Saline Flush) 10 ml FLUSH ASDIRECTED PRN PRN Reason: Keep Vein Open Stop: 12/04/17 18:00 Testosterone Cypionate (Depo-Testosterone) 200 mg IM ASDIRECTED [facility] Tranexamic Acid (Cyklokapron) Confirm Administered Dose 1,000 mg .ROUTE .STK- MED ONE Stop: 04/26/17 07:10 Last Admin: 04/26/17 10:25 Dose: 1,000 mg Vancomycin HCl (Vancomycin) Confirm Administered Dose 1 gm .ROUTE .STK-MED ONE Stop: 04/26/17 07:10 Last Admin: 04/26/17 10:24 Dose: 1 gm *Q Meaningful Use (DIS) - VTE *Q VTE Criteria *Q: - Stroke *Q Stroke Criteria *Q: - AMI *Q AMI Criteria *Q:
--- NOTE | 2017-05-03 15:14 | PCM.OPNOTE ---
- General Post-Op/Procedure Note Date of Surgery/Procedure: 04/26/17 Operative Procedure(s): left total hip arthroplasty Pre Op Diagnosis: left hip osteoarthrosis Post-Op Diagnosis: Same Anesthesia Technique: Local, MAC, Spinal Primary Surgeon: Juan Beltrán Anesthesia Provider: Taylor Harris Home Help Aide: Zaira Anaya Home Help Aide: Poly Arellano EBNu in mLs: 600 Complications: None Condition: Good
--- NOTE | 2017-05-03 16:16 | OR ---
DATE OF OPERATION: 04/26/2017 SURGEON: Juan Beltrán MD OPERATION PERFORMED: Left total hip arthroplasty. PREOPERATIVE DIAGNOSIS: Left hip osteoarthrosis. POSTOPERATIVE DIAGNOSIS: Left hip osteoarthrosis. ANESTHESIA: Local MAC with spinal. ANESTHESIA PROVIDER: Dr. Taylor Harris. ASSISTANTS: Zaira Anaya PA-C and Poly Arellano LPN. ESTIMATED BLOOD LOSS: 600 mL. COMPLICATIONS: None. CONDITION: Stable. IMPLANTS: 1. [place] size 7 Accolade II femoral stem. 2. Eh 36+ 7 Biolox ceramic head. 3. Eh 56 mm Tritanium solid acetabular cup. DESCRIPTION OF PROCEDURE: The patient was identified in the preoperative holding area. Proper site was marked and identified by the surgeon. The patient was taken back to the operating theater where after adequate anesthesia, the patient was placed in a right lateral decubitus position. Axillary roll was placed. All bony prominences were well padded. Pegs were then placed and well padded. The patient's gluteal fold was parallel to the floor. Left hip was then sterilely prepped and draped in the usual sterile fashion. OR time-out was performed. The patient received 2 g IV Ancef. At this time, standard posterior incision was made centered over the greater trochanter. This was taken down to the IT band and gluteal fascia, which was incised along the incisional length. Charnley retractor was then placed. Identification of the piriformis tendon short external rotators was then done, retractor was used to retract the gluteus medius and minimus. Takedown of the short external rotators and capsule was done all the way down to the level of the lesser trochanter. The hip was then dislocated. Neck cut guide was then placed. Neck cut was then completed and found to be adequate. Anterior and posterior as well as inferior acetabular retractors were placed. Any remaining labrum was removed as well as pulvinar. At this time, starting with a size 50 reamer, I was able to ream up to a 56 which was found to be stable. The 56 mm [place] Tritanium solid acetabular cup was then impacted into place. A roughly 40 degrees abduction and 20 to 30 degrees of anteversion, bony references were used. At this time, the 36 mm 10 degree elevated liner was impacted into place. Attention was turned to the femur. The femoral elevator was placed. Box chisel was used out laterally. Starter awl was placed down the canal. Starting with the 0 broach, I was able to broach up to a size 7 which was found to be rotationally and vertically stable. At this time, we trialed a 36 mm +0 was found to be short on leg lengths, so therefore we switched to a 36+ 7 which was found to have adequate rastafari of leg lengths. The patient's hip was stable throughout range of motion. Hip was then dislocated. The size 7 Accolade II stem was then impacted in place along with a 36+ 7 mm ceramic head. Hip was then relocated. Two #5 Ethibond suture was used for closure of the short external rotators and capsule. 1 L dilute Betadine solution was irrigated through the hip along 3 L of pulse lavage irrigation with Ancef. Topical tranexamic acid as well as vancomycin powder was placed in the hip. A #2 barbed suture was used for closure of the IT band and gluteal fascia, 2-0 Vicryl was used subcutaneously and Prineo was used for the skin. The patient tolerated the procedure well and sent to PACU in stable condition. NAHED /[id number]
== END 2017-04-27 13:35 | disposition home or self-care (01) | DRG 301 ==
LOC: JD.MS 06:48 → EDSEX 09:15
PROVIDERS: ADMIT Orthopaedic Surgery; ATTEND Orthopaedic Surgery
PROC: 0SRB039 Replacement of Left Hip Joint with Ceramic Synthetic Substitute, Cemented, Open Approach (ICD-10-PCS; principal; 2017-04-26)
DX: M16.12 Unilateral primary osteoarthritis, left hip (principal); J30.2 Other seasonal allergic rhinitis; E78.5 Hyperlipidemia, unspecified; Z79.899 Other long term (current) drug therapy; E29.1 Testicular hypofunction; R53.82 Chronic fatigue, unspecified; G89.29 Other chronic pain; M54.5 Low back pain
CPT/HCPCS: 01214; 36415; 73501-26-LT; 73501-LT; 80053; 85027; 86850; 86900; 86901; 87641; 93005; 94762; 97110-GP; 97116-GP; 97161-GP; 97165-GO; 97530-GO; 97535-GO; A9270-GY; C1776; J0171; J0690; J0697; J1200; J1885; J2250; J2270; J2405; J2704; J3010; J3370; J3490; J7120

== ENCOUNTER 2022-04-27 07:30 | Day surgery (SDC) | payer BC ==
[~2022-04-27 07:30] MED LIST changes: +Acetaminophen 325 MG Tab PO SCH; -Bisacodyl 5 MG Tab PO PRN; -Cyclobenzaprine 10 MG Tab PO PRN; -Ketorolac 15 MG/ML SDV IVPUSH PRN; +Lactated Ringers 1,000 ML IV SCH; +Lidocaine 1%/Sod Bicarbonate in NS 8.4% 1 ML Syringe IDERM PRN; -Lidocaine 1%/Sod Bicarbonate in NS 8.4% 1 ML Syringe PRN; -Magnesium Hydroxide 400 MG/5 ML Susp 30 ML Cup PO PRN; -Morphine 2 MG/ML Syringe IVPUSH PRN; +Morphine 8 MG, EPINEPHrine 0.3 MG, Cefuroxime 750 MG, Ketorolac 30 MG, Sodium Chloride ... PRN; -Naloxone 0.4 MG/ML SDV IVPUSH PRN; -Ondansetron 4 MG/2 ML SDV IVPUSH PRN; +Pregabalin 25 MG Cap PO SCH; -Sennosides 8.6 MG Tab PO PRN; -Sodium Chloride 0.9% 10 ML Syringe FLUSH PRN; -diphenhydrAMINE 50 MG/ML SDV IVPUSH PRN; +oxyCODONE ER 10 MG TAB.ER PO SCH
[2022-04-27] MEDS ORDERED: Vancomycin 1 GM SDV ONE (07:33)
[2022-04-27] MEDS ORDERED: Tranexamic Acid 1,000 MG/10 ML Vial ONE (07:33)
[2022-04-27] MEDS ORDERED: ceFAZolin 2 GM Vial ONE (08:16)
[2022-04-27] MEDS ORDERED: Lidocaine 1% 4 ML ONE (08:16)
[2022-04-27] MEDS ORDERED: Propofol 200 MG/20 ML SDV ONE ×5 (08:17→10:46)
[2022-04-27] MEDS ORDERED: Triamcinolone Acetonide 40 MG/ML 1 ML SDV ONE (08:18)
[2022-04-27] MEDS ORDERED: Midazolam 1 MG/ML 2 ML SDV ONE (08:21)
[2022-04-27] MEDS ORDERED: fentaNYL 100 MCG/2 ML SDV ONE (08:22)
[2022-04-27] MEDS ORDERED: Bupivacaine 0.25% 10 ML SDV ONE (08:31)
[2022-04-27] MEDS ORDERED: Lactated Ringers 1,000 ML ONE (09:30)
[2022-04-27] MEDS ORDERED: ePHEDrine 50 MG/ML SDV ONE (09:31)
[2022-04-27] MEDS ORDERED: Ondansetron 4 MG/2 ML SDV ONE (09:33)
[2022-04-27] MEDS ORDERED: Ketorolac 30 MG/ML SDV ONE (09:33)
[2022-04-27] MEDS ORDERED: fentaNYL 100 MCG/2 ML SDV IVPUSH PRN (09:36)
[2022-04-27] MEDS ORDERED: Ondansetron 4 MG/2 ML SDV IVPUSH PRN (09:36)
[2022-04-27] MEDS ORDERED: diphenhydrAMINE 50 MG/ML SDV IVPUSH PRN (09:36)
[2022-04-27] MEDS ORDERED: Sodium Chloride 0.9% 10 ML Syringe FLUSH PRN (10:01)
[2022-04-27] MEDS ORDERED: Sodium Chloride 0.9% 10 ML Syringe FLUSH SCH (21:00)
== END 2022-04-27 14:30 | disposition home or self-care (01) ==
LOC: JD.SDS 07:30
PROVIDERS: ATTEND Orthopaedic Surgery
DX: M16.11 Unilateral primary osteoarthritis, right hip (principal); M25.511 Pain in right shoulder; S46.111A Strain of muscle, fascia and tendon of long head of biceps, right arm, initial encounter; I10 Essential (primary) hypertension; E78.00 Pure hypercholesterolemia, unspecified; Z98.890 Other specified postprocedural states; Z79.899 Other long term (current) drug therapy; Z88.5 Allergy status to narcotic agent; Z91.048 Other nonmedicinal substance allergy status; Z79.82 Long term (current) use of aspirin
CPT/HCPCS: 0055T; 20610; 27130; 36415; 73501; 86850; 86900; 86901; 97161; A9270; C1713; C1776; J0171; J0690; J0697; J1885; J2250; J2270; J2405; J2704; J3010; J3301; J3370; J3490; J7120; 01214

== ENCOUNTER 2022-08-13 08:48 | Day surgery (SDC) | payer BC ==
[~2022-08-13 08:48] MED LIST changes: -Acetaminophen 325 MG Tab PO SCH; -Morphine 8 MG, EPINEPHrine 0.3 MG, Cefuroxime 750 MG, Ketorolac 30 MG, Sodium Chloride ... PRN; -Pregabalin 25 MG Cap PO SCH; +Sodium Chloride 0.9% 10 ML Syringe FLUSH PRN; +Sodium Chloride 0.9% 10 ML Syringe FLUSH SCH; -oxyCODONE ER 10 MG TAB.ER PO SCH
[2022-08-13] MEDS ORDERED: Ropivacaine 0.5% 5 MG/ML 30 ML SDV ONE (08:49)
[2022-08-13] MEDS ORDERED: Midazolam 1 MG/ML 2 ML SDV ONE (08:51)
[2022-08-13] MEDS ORDERED: fentaNYL 100 MCG/2 ML SDV ONE (08:51)
[2022-08-13] MEDS ORDERED: Dexamethasone 4 MG/ML 5 ML MDV ONE (08:51)
[2022-08-13] MEDS ORDERED: Rocuronium 50 MG/5 ML Vial ONE (09:43)
[2022-08-13] MEDS ORDERED: Propofol 200 MG/20 ML SDV ONE (09:43)
[2022-08-13] MEDS ORDERED: Lidocaine 1% 4 ML ONE (09:43)
[2022-08-13] MEDS ORDERED: ceFAZolin 2 GM Vial ONE (09:45)
[2022-08-13] MEDS ORDERED: Ketorolac 30 MG/ML SDV ONE (11:18)
[2022-08-13] MEDS ORDERED: Ondansetron 4 MG/2 ML SDV ONE (11:18)
[2022-08-13] MEDS ORDERED: Acetaminophen/HYDROcodone 325-5 MG Tab PO PRN (11:33)
[2022-08-13] MEDS ORDERED: Ondansetron 4 MG/2 ML SDV IVPUSH PRN (12:44)
[2022-08-13] MEDS ORDERED: HYDROmorphone 0.5 MG/0.5 ML Syringe IVPUSH PRN (12:44)
[2022-08-13] MEDS ORDERED: fentaNYL 100 MCG/2 ML SDV IVPUSH PRN (12:44)
== END 2022-08-13 14:30 | disposition home or self-care (01) ==
LOC: JD.SDS 08:48
PROVIDERS: ATTEND Orthopaedic Surgery
DX: S46.812A Strain of other muscles, fascia and tendons at shoulder and upper arm level, left arm, initial encounter (principal); I10 Essential (primary) hypertension; E78.5 Hyperlipidemia, unspecified; Z88.5 Allergy status to narcotic agent; Z87.891 Personal history of nicotine dependence; Z79.899 Other long term (current) drug therapy
CPT/HCPCS: 23410; 64415; A9270; C1713; J0690; J1100; J1885; J2250; J2405; J2704; J2795; J3010; J7120; 01610; J3490